=== PATIENT | female | born 1955 | race Caucasian/White ===

== ENCOUNTER 2019-01-12 15:30 | Outpatient (RCR) | payer BC, SELFPAY | END 2019-01-12 15:45 | disposition home or self-care (01) | LOC: PT 15:30 | PROVIDERS: Visit Provider Orthopaedic Surgery | DX: M50.022 Cervical disc disorder at C5-C6 level with myelopathy (principal) | CPT/HCPCS: 97010; 97014; 97033; 97035; 97110; 97140; 97163; 97164; G0283 ==

== ENCOUNTER 2019-07-13 15:30 | Outpatient (RCR) | payer BC, SELFPAY | END 2019-07-13 15:35 | disposition home or self-care (01) | LOC: PT 15:30 | PROVIDERS: Visit Provider Orthopaedic Surgery | DX: M54.2 Cervicalgia (principal); M43.22 Fusion of spine, cervical region | CPT/HCPCS: 97010; 97014; 97035; 97110; 97163; 97164; G0283 ==

== ENCOUNTER 2021-04-08 15:39 | Emergency (ER) | payer OTHER, SELFPAY ==
--- NOTE | 2021-04-08 16:47 | HMH.EDUTC ---
[facility] [place]ression: Left ankle [place] Qualifiers: Encounter type: initial encounter Qualified Code(s): S99.912A - Unspecified injury of left ankle, initial encounter Disposition: Home, Self-Care Condition on Discharge: Good Instructions: How to Use Crutches, Ankle Fracture, DI for Ankle Fracture Additional Instructions: Rest the extremity, Elevate the extremity as tolerated while you are resting. Take ibuprofen for pain. I sent in a prescription to your pharmacy. Follow up with Dr. Eduardo (podiatry). I put in a referral but you need to call her office and schedule an appointment. Follow up with your regular doctor. GO TO THE ER FOR ANY WORSENING SYMPTOMS Prescriptions: Ibuprofen [Ibuprofen 600mg Tablet] 600 mg PO Q6HP PRN #30 tab PRN Reason: Mild Pain Transmission Status: Received by [id number] Referrals: Caleb Nascimento [Primary Care Provider] - Susana Eduardo DPM [Staff Physician] - Forms: Work/School Release Time of Disposition: 17:53 Medical Decision Making - Medical Records Medical records reviewed: No: I reviewed the patient's medical records. - [facility] Pt receiving controlled substance: No Vital Signs: 04/08/21 17:06 04/08/21 18:12 Temperature 98.1 F 98.4 F Temperature Source Oral Pulse Rate 82 Pulse Rate [Left] 82 Respiratory Rate 20 20 Blood Pressure 172/76 H Blood Pressure [Right Arm] 172/74 H Blood Pressure Mean [Right Arm] 106 02 Sat by Pulse Oximetry 98 - Radiology Data #1 Image(s): Ankle Image Reviewed: Yes I reviewed the patient's radiology image, Yes I have reviewed radiologist's interpretation PROCEDURE: XR ANKLE LT MIN 3V CLINICAL INDICATION: left ankle pain, twisted ankle and foot COMPARISON: No exams were available for comparison FINDINGS: No fracture or dislocation. No lytic or blastic change. There is normal mineralization. Status post ORIF distal fibula with lateral bone plate and cortical screws and medial malleolus with 2 cortical screws. There are no previous exams available for comparison. There is a faint lucency at the base of the medial malleolus which could be related to patient's old fracture. Cannot exclude the possibility of Re fracture. Old films are needed for comparison. There is good alignment. Other findings:None. IMPRESSION: Prior ORIF distal tib fib. There is a faint oblique lucency at the base of the medial malleolus which could be due to the patient's old injury. Please correlate with patient's time of injury previously. Cannot exclude the possibility of a Re fracture at this area. The ankle mortise is preserved. There is some mild soft tissue swelling medially. Dictated by: Phi Rachel MD 04/08/2021 17:36 Phi Rachel MD in [place] 04/08/2021 17:36 #2 Image(s): Foot/Toes Image Reviewed: Yes I reviewed the patient's radiology image, Yes I have reviewed radiologist's interpretation Preliminary Findings: Normal/NAD PROCEDURE: XR FOOT LT MIN 3V CLINICAL INDICATION: twisted left foot and ankle, left foot pain. COMPARISON: No exams were available for comparison FINDINGS: No fracture or dislocation. No lytic or blastic change. There is normal mineralization. The joint spaces are well-preserved. No significant degenerative/arthritic changes. No erosive changes evident. Other findings:Prior distal tib fib IMPRESSION: No acute findings. Dictated by: Phi Rachel MD 04/08/2021 17:36 Phi Rachel MD in [place] 04/08/2021 17:36 [facility] [place] - General Stated complaint: [place] 03/21/21 Lt ankle injury Time Seen by Provider: 04/08/21 17:39 - History of Present Illness Provider Complaint: She states that on March 21, she was at work when she stepped wrong and twisted her left ankle. She has had pain and swelling of the left ankle since then. She has a history of breaking the ankle many years ago when she lived in [place] and had to have surgery
[2021-04-08 17:06] VITALS: BP 172/74; PULSE 82; RESP 20; TEMP 36.7; O2SAT 98; BMI 23.6
[2021-04-08 18:12] VITALS: BP 172/76; PULSE 82; RESP 20; TEMP 36.9
== END 2021-04-08 18:24 | disposition home or self-care (01) ==
PROVIDERS: Emergency Provider Nurse Practitioner Family; PCP Family Medicine
DX: S99.912A Unspecified injury of left ankle, initial encounter (principal); X50.1XXA Overexertion from prolonged static or awkward postures, initial encounter; Y92.69 Other specified industrial and construction area as the place of occurrence of the external cause; Y99.0 Civilian activity done for income or pay; Z88.0 Allergy status to penicillin
CPT/HCPCS: 29515; 73610; 73630; 99202; G0463

== ENCOUNTER → 2021-04-24 10:10 | Outpatient (CLI) | payer OTHER, SELFPAY ==
--- NOTE | 2021-04-24 10:11 | CT_ITS ---
PROCEDURE INFORMATION: Exam: CT Left Lower Extremity Without Contrast, Ankle Exam date and time: 04/24/2021 10:11 AM Age: 66 years old Clinical indication: Injury or trauma; Other: FX evaluation; Fracture, traumatic; Closed fracture; Ankle; Left; Not specified; Patient HX: Fracture evaluation TECHNIQUE: Imaging protocol: CT of the Left lower extremity without contrast was performed. Exam focused on the ankle. Radiation optimization: All CT scans at this facility use at least one of these dose optimization techniques: automated exposure control; mA and/or kV adjustment per patient size (includes targeted exams where dose is matched to clinical indication); or iterative reconstruction. COMPARISON: CR XR ANKLE LT MIN 3V 04/08/2021 4:49 PM FINDINGS: Bones/joints: Plate and screws in the distal fibula. Two screws in the medial malleolus. . Nondisplaced Fracture fragments in the medial malleolus are in good alignment. Fracture fragments in the distal fibula are not visualized. Soft tissues: Normal. IMPRESSION: 1. Plate and screws in the distal fibula. Two screws in the medial malleolus. . 2. Nondisplaced Fracture fragments in the medial malleolus are in good alignment. Fracture fragments in the distal fibula are not visualized.
== END ==
PROVIDERS: PCP Family Medicine; Visit Provider Podiatrist
DX: S82.55XA Nondisplaced fracture of medial malleolus of left tibia, initial encounter for closed fracture (principal); S82.892A Other fracture of left lower leg, initial encounter for closed fracture; Z02.6 Encounter for examination for insurance purposes; Z96.9 Presence of functional implant, unspecified
CPT/HCPCS: 73700

== ENCOUNTER → 2021-06-01 10:08 | Outpatient (CLI) | payer OTHER, SELFPAY ==
--- NOTE | 2021-06-01 10:17 | XR_ITS ---
PROCEDURE: XR ANKLE WT BEARING LT MIN 3V CLINICAL INDICATION: fracture follow up COMPARISON: No exams were available for comparison FINDINGS: Status post ORIF distal tib fib with lateral fibular bone plate. Faint fracture line noted at the medial malleolar region laterally as before. No displacement. No hardware malfunction. The most posterior of the medial malleolar screws does appear to extend through the posterior cortical surface of the distal tibia. IMPRESSION: Status post ORIF distal tib fib as described above. Dictated by: Phi Rachel MD 06/01/2021 14:49 Phi Rachel MD in [place] 06/01/2021 14:49
== END ==
PROVIDERS: PCP Family Medicine; Visit Provider Podiatrist
DX: S82.52XA Displaced fracture of medial malleolus of left tibia, initial encounter for closed fracture (principal); T14.8XXA Other injury of unspecified body region, initial encounter
CPT/HCPCS: 73610

== ENCOUNTER → 2021-06-29 10:20 | Outpatient (CLI) | payer OTHER, BC, SELFPAY ==
--- NOTE | 2021-06-29 10:30 | XR_ITS ---
PROCEDURE: XR ANKLE WT BEARING LT MIN 3V CLINICAL INDICATION: fracture eval COMPARISON: CR XR ANKLE LT MIN 3V from 04/08/2021 CR XR ANKLE WT BEARING LT MIN 3V from 06/01/2021 FINDINGS: Prior distal tib fib with lateral fibular bone plate in 2 screws within the medial malleolar region. Fracture line at the medial malleolar region laterally is once again noted but may be somewhat less apparent with osteosclerosis noted at the fracture site laterally. There is good alignment. IMPRESSION: Good alignment status post ORIF distal tib fib Dictated by: Phi Rachel MD 06/29/2021 13:03 Phi Rachel MD in [place] 06/29/2021 13:03
== END ==
PROVIDERS: PCP Family Medicine; Visit Provider Podiatrist
DX: S82.892K Other fracture of left lower leg, subsequent encounter for closed fracture with nonunion (principal); S82.55XK Nondisplaced fracture of medial malleolus of left tibia, subsequent encounter for closed fracture with nonunion; T14.8XXA Other injury of unspecified body region, initial encounter
CPT/HCPCS: 73610

== ENCOUNTER → 2021-08-03 10:41 | Outpatient (CLI) | payer OTHER, BC, SELFPAY ==
--- NOTE | 2021-08-03 10:46 | XR_ITS ---
PROCEDURE: XR ANKLE WT BEARING LT MIN 3V CLINICAL INDICATION: fracture evaluation COMPARISON: CR XR ANKLE LT MIN 3V from 04/08/2021 CR XR ANKLE WT BEARING LT MIN 3V from 06/01/2021 CR XR ANKLE WT BEARING LT MIN 3V from 06/29/2021 FINDINGS: No change status post ORIF with lateral fibular bone plate and multiple cortical screws and 2 screws within the medial malleolar region. Fracture line still visible at the base of the medial malleolus laterally. Ankle mortise is preserved. Talar dome has an unremarkable appearance. IMPRESSION: No change good alignment status post ORIF distal tib fib Dictated by: Phi Rachel MD 08/03/2021 12:41 Phi Rachel MD in [place] 08/03/2021 12:41
== END ==
PROVIDERS: PCP Family Medicine; Visit Provider Podiatrist
DX: S82.52XA Displaced fracture of medial malleolus of left tibia, initial encounter for closed fracture (principal); S82.892A Other fracture of left lower leg, initial encounter for closed fracture; S99.912A Unspecified injury of left ankle, initial encounter
CPT/HCPCS: 73610

== ENCOUNTER 2021-08-07 13:00 | Outpatient (RCR) | payer OTHER, SELFPAY ==
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
== END 2021-08-07 13:05 | disposition home or self-care (01) ==
LOC: PT 13:00
PROVIDERS: Visit Provider Podiatrist
DX: S82.892K Other fracture of left lower leg, subsequent encounter for closed fracture with nonunion (principal); S82.55XK Nondisplaced fracture of medial malleolus of left tibia, subsequent encounter for closed fracture with nonunion
CPT/HCPCS: 97010; 97014; 97110; 97112; 97163; G0283

== ENCOUNTER → 2021-08-31 11:42 | Outpatient (CLI) | payer OTHER, SELFPAY ==
--- NOTE | 2021-08-31 11:46 | XR_ITS ---
FINAL REPORT CLINICAL HISTORY: fracture follow up COMPARISON: August 03, 2021 FINDINGS: LEFT ANKLE: Three views of the left ankle were obtained. There are postoperative changes in the medial malleolus and the distal fibula with a screw plate and multiple screws. There is no change in alignment. There are mild degenerative changes. There is new sclerosis in the calcaneal tuberosity of uncertain etiology. This could represent a subacute fracture. There is no soft tissue abnormality. IMPRESSION: Postoperative changes as described. New sclerosis in the calcaneal tuberosity of uncertain etiology, could represent a subacute fracture. Reviewed, Interpreted and Dictated by Zi Bruno III, MD Transcribed by Raquel Herrera Authenticated by Zi Bruno III, MD on 08/31/2021 01:24:28 PM [facility]
== END ==
PROVIDERS: PCP Family Medicine; Visit Provider Podiatrist
DX: S82.52XA Displaced fracture of medial malleolus of left tibia, initial encounter for closed fracture (principal); S82.892A Other fracture of left lower leg, initial encounter for closed fracture
CPT/HCPCS: 73610

== ENCOUNTER 2021-10-12 11:00 | Outpatient (RCR) | payer OTHER, SELFPAY ==
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
== END 2021-10-12 11:05 | disposition home or self-care (01) ==
LOC: PT 11:00
PROVIDERS: Visit Provider Podiatrist
DX: S82.892K Other fracture of left lower leg, subsequent encounter for closed fracture with nonunion (principal); S82.55XK Nondisplaced fracture of medial malleolus of left tibia, subsequent encounter for closed fracture with nonunion; M76.62 Achilles tendinitis, left leg; M76.72 Peroneal tendinitis, left leg; M25.372 Other instability, left ankle; M25.472 Effusion, left ankle; S99.912D Unspecified injury of left ankle, subsequent encounter; Z02.6 Encounter for examination for insurance purposes
CPT/HCPCS: 97010; 97014; 97110; 97112; 97163; 97535; G0283

== ENCOUNTER → 2021-10-26 11:16 | Outpatient (CLI) | payer OTHER, SELFPAY ==
--- NOTE | 2021-10-26 11:24 | XR_ITS ---
FINAL REPORT CLINICAL HISTORY: fracture evaluation COMPARISON: August 31, 2021 FINDINGS: LEFT ANKLE: Three views of the left ankle were obtained. There there are postoperative changes involving the medial malleolus and distal fibula. A screw plate and multiple screws are present. There is a presumed chronic fracture through the base of the medial malleolus. Bony alignment is normal. IMPRESSION: Postoperative change of the medial malleolus and distal fibula with normal bony alignment. Reviewed, Interpreted and Dictated by Zi Bruno III, MD Transcribed by Bg Haile Authenticated by Zi Bruno III, MD on 10/26/2021 12:34:44 PM [facility]
== END ==
PROVIDERS: PCP Family Medicine; Visit Provider Podiatrist
DX: S82.52XA Displaced fracture of medial malleolus of left tibia, initial encounter for closed fracture (principal); S82.892A Other fracture of left lower leg, initial encounter for closed fracture; S99.912A Unspecified injury of left ankle, initial encounter
CPT/HCPCS: 73610